=== PATIENT | female | born 1990 | race Caucasian/White ===

== ENCOUNTER 2016-08-13 17:48 | Emergency (ER) | payer OTHER ==
[~2016-08-13] VITALS: Ht 154.9 cm; Wt 53.2 kg
[~2016-08-13 17:48] MED LIST: CLON1TAB PO; HYDR-4452 PO; IBUP-2213 PO; NAPR375T2 PO; NITR100C7 PO; ONDA4TAB PO; PHEN-136 PO
[2016-08-13 18:32] VITALS: BP 116/79
--- NOTE | 2016-08-13 19:43 | NUR ---
PT TAKEN TO [facility] FROM [facility]
--- NOTE | 2016-08-13 20:05 | NUR ---
PT RETURN FROM XRAY TO LOBBY
--- NOTE | 2016-08-13 21:35 | NUR ---
PT TAKEN TO BED 4
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
--- NOTE | 2016-08-13 22:37 | NUR ---
Dr. De Guzman evaluating patient at bedside.
[2016-08-13] MEDS ORDERED: KETOROLAC 60 MG/2 ML VIAL IM ONE (22:45)
[2016-08-13 23:02] VITALS: BP 119/76
--- NOTE | 2016-08-13 23:02 | NUR ---
Patient discharged with v/s stable. Written and verbal after care instructions given and explained. Patient alert, oriented and verbalized understanding of instructions. Ambulatory with steady gait. All questions addressed prior to discharge. ID band removed. Patient advised to follow up with PMD. Rx of NORCO 5/325 AND MOTRIN 800MG given. Patient educated on indication of medication including possible reaction and side effects. Opportunity to ask questions provided and answered.
== END 2016-08-13 23:02 | disposition home or self-care (01) ==
LOC: MED 17:48
DX: M54.2 Cervicalgia (principal); R07.89 Other chest pain; M25.512 Pain in left shoulder; M25.511 Pain in right shoulder; Z88.1 Allergy status to other antibiotic agents; Z79.899 Other long term (current) drug therapy; V59.9XXA Occupant (driver) (passenger) of pick-up truck or van injured in unspecified traffic accident, initial encounter; Y93.89 Activity, other specified; Y92.89 Other specified places as the place of occurrence of the external cause; Y99.8 Other external cause status
CPT/HCPCS: 71020; 72040; 73030; 96372; 99284; J1885

== ENCOUNTER 2017-03-15 11:52 | Emergency (ER) | payer MEDICAID ==
[~2017-03-15] VITALS: Ht 152.4 cm; Wt 58.1 kg
[~2017-03-15 11:52] MED LIST changes: +ACET-787 PO; -HYDR-4452 PO; -PHEN-136 PO; +PHEN-1749 PO
[2017-03-15 12:12] VITALS: BP 105/63
--- NOTE | 2017-03-15 12:38 | NUR ---
27/F BIB SELF C/O PELVIC PAIN WITH PRESURE 10, GESTATION APPROXIMATELY 4 WEEKS. PT STATES SHE CAME HERE 2 DAYS AGO & TODAY WANT TO CHECK HCG TEST . DENIES N/V/D; SKIN IS PINK/WARM/DRY; AAOX4 WITH EVEN AND STEADY GAIT; LUNGS CLEAR BL; HR EVEN AND REGULAR; PATIENT STATES PAIN OF 7/10 AT THIS TIME; VSS; PATIENT POSITIONED FOR COMFORT; HOB ELEVATED; BEDRAILS UP X2; BED DOWN. ER MD MADE AWARE OF PT STATUS.
[2017-03-15 13:20] LABS: BASOPHILS # (AUTO) 0.1 K/uL (0.00-0.22); BASOPHILS % (AUTO) 1.6 % (0.0-2.0); EOSINOPHILS % (AUTO) 0.6 % (0.0-4.0); HEMOGLOBIN 13.9 g/dL (12.0-16.0); LYMPHOCYTES # (AUTO) 1.9 K/uL (2.5-16.5); LYMPHOCYTES % (AUTO) 27.6 % (20.5-51.1); MEAN CORPUSCULAR HEMOGLOBIN 31 pg (27-31); MEAN CORPUSCULAR HGB CONC 35 g/dL (33-37); MEAN CORPUSCULAR VOLUME 90 fL (80-94); MONOCYTES # (AUTO) 0.4 K/uL (0.8-1.0); MONOCYTES % (AUTO) 5.4 % (1.7-9.3); NEUTROPHILS # (AUTO) 4.6 K/uL (1.8-7.7); NEUTROPHILS % (AUTO) 64.8 % (42.2-75.2); PLATELET COUNT (AUTO) 271 K/uL (140-450); RED BLOOD CELL COUNT(AUTO) 4.47 MIL/uL (4.20-5.40); RED CELL DISTRIBUTION WIDTH 11.8 % (11.6-13.7)
[2017-03-15 13:47] LABS: BILIRUBIN,URINE NEGATIVE (NEGATIVE); BLOOD, URINE NEGATIVE (NEGATIVE); COLOR,URINE YELLOW (YELLOW); LEUKOCYTE ESTERASE ,URINE NEGATIVE (NEGATIVE); NITRITE, URINE NEGATIVE (NEGATIVE); UGLUCOSE NEGATIVE (NEGATIVE)
[2017-03-15 14:33] LABS: APPEARANCE,URINE CLEAR (CLEAR)
[2017-03-15 15:16] VITALS: BP 100/62
--- NOTE | 2017-03-15 15:16 | NUR ---
Patient discharged with v/s stable. Written and verbal after care instructions given and explained. Patient verbalized understanding. Ambulatory with steady gait. All questions addressed prior to discharge. Advised to follow up with PMD.
== END 2017-03-15 15:16 | disposition home or self-care (01) ==
LOC: MED 11:52
DX: O26.891 Other specified pregnancy related conditions, first trimester (principal); R10.30 Lower abdominal pain, unspecified; Z88.1 Allergy status to other antibiotic agents
CPT/HCPCS: 36415; 76817; 81003; 84702; 85025; 99285

== ENCOUNTER 2018-01-25 14:11 | Emergency (ER) | payer MEDICAID, OTHER ==
[~2018-01-25] VITALS: Ht 165.1 cm; Wt 75.7 kg
[2018-01-25 14:20] VITALS: BP 107/76
--- NOTE | 2018-01-25 15:05 | NUR ---
PT AMBULATES TO BED 3
--- NOTE | 2018-01-25 15:07 | NUR ---
Patient being evaluated by physician at bedside.
[2018-01-25] MEDS ORDERED: IBUPROFEN 800 MG TAB PO ONE (15:20)
--- NOTE | 2018-01-25 15:20 | NUR ---
27 YO F BIB SELF W/ C/O LEFT THUMB PAIN THAT RADIATES UP HER LEFT WRIST X 1 MONTH. DENIES INJURY OR TRAUMA, -DISCOLORATION, -EDEMA, -ERYTHEMA, -DEFORMITY. AAOX4, PERRL, WITH EVEN AND STEADY GAIT; LUNGS CLEAR BL, BREATHING UNLABORED; HR EVEN AND REGULAR, BL PERIPHERAL PULSES PRESENT; BS ACTIVE X4, NO TENDERNESS TO PALPATION, NO HEPATOSPLENOMEGALLY PALPATED, RESONANT TO PERCUSSION; PT DENIES ANY FEVER, CP, SOB, OR COUGH AT THIS TIME; PT STATES 8/10 PAIN AT THIS TIME; VSS; PATIENT POSITIONED FOR COMFORT; HOB ELEVATED; BEDRAILS UP X2; BED DOWN.
[2018-01-25 15:40] VITALS: BP 110/78
--- NOTE | 2018-01-25 15:40 | NUR ---
Patient discharged with v/s stable. Written and verbal after care instructions given and explained. Patient alert, oriented and verbalized understanding of instructions. Ambulatory with steady gait. All questions addressed prior to discharge. ID band removed. Patient advised to follow up with PMD. Rx of voltaren xr 100mg given. Patient educated on indication of medication including possible reaction and side effects. Opportunity to ask questions provided and answered.
== END 2018-01-25 15:39 | disposition home or self-care (01) ==
LOC: MED 14:11
DX: M79.645 Pain in left finger(s) (principal); Z88.1 Allergy status to other antibiotic agents; Z79.899 Other long term (current) drug therapy
CPT/HCPCS: 99283

== ENCOUNTER 2018-04-05 15:11 | Emergency (ER) | payer OTHER ==
[~2018-04-05] VITALS: Ht 160 cm; Wt 70.0 kg
[2018-04-05 15:23] VITALS: BP 119/57
--- NOTE | 2018-04-05 15:35 | NUR ---
28 YO F BIB SELF C/O NAUSEA & EPIGASTRIC PAIN RADIATING TO MID CHEST X 2 DAYS. DENIES ETOH. LAST MEAL WAS A BANANA AT 12PM. PT DENIES TAKING ANY MEDICATION. HX OVARIAN CYST RX DENIES DENIES V/D; SKIN IS PINK/WARM/DRY; AAOX4 WITH EVEN AND STEADY GAIT. PT DENIES ANY FEVER, SOB, OR COUGH AT THIS TIME; PATIENT STATES PAIN OF 8/10 AT THIS TIME. PATIENT POSITIONED FOR COMFORT; HOB ELEVATED; BEDRAILS UP X2; BED DOWN. ER MD MADE AWARE OF PT STATUS.
--- NOTE | 2018-04-05 15:42 | NUR ---
PT AMBULATES TO BED 7
[2018-04-05] MEDS ORDERED: LIDOCAINE VISCOUS 2% 20 ML UDC PO ONE (16:40)
[2018-04-05] MEDS ORDERED: FAMOTIDINE 20 MG TAB PO ONE (16:40)
[2018-04-05] MEDS ORDERED: ALUMINUM HYD/MAG/SIMETHICONE 30 ML UDC PO ONE (16:40)
[2018-04-05 18:35] VITALS: BP 115/75
--- NOTE | 2018-04-05 18:35 | NUR ---
Patient discharged with v/s stable. Written and verbal after care instructions given and explained. Patient alert, oriented and verbalized understanding of instructions. Ambulatory with steady gait. All questions addressed prior to discharge. ID band removed. Patient advised to follow up with PMD. Rx of OMEPRAZOLE AND ACETAMINOPHEN given. Patient educated on indication of medication including possible reaction and side effects. Opportunity to ask questions provided and answered.
== END 2018-04-05 18:35 | disposition home or self-care (01) ==
LOC: MED 15:11
DX: K21.9 Gastro-esophageal reflux disease without esophagitis (principal); Z88.1 Allergy status to other antibiotic agents; Z79.1 Long term (current) use of non-steroidal anti-inflammatories (NSAID); Z79.891 Long term (current) use of opiate analgesic; Z79.899 Other long term (current) drug therapy
CPT/HCPCS: 81025; 93005; 99284

== ENCOUNTER 2019-10-14 12:53 | Emergency (ER) | payer OTHER ==
[~2019-10-14] VITALS: Ht 152.4 cm; Wt 62.1 kg
[~2019-10-14 12:53] MED LIST changes: -ACET-787 PO; +HYDR-5191 PO
[2019-10-14 12:54] VITALS: BP 129/71
--- NOTE | 2019-10-14 13:08 | NUR ---
PT AMBULATED TO RESTROOM
--- NOTE | 2019-10-14 13:20 | NUR ---
C/ O NAUSEA,LOWER BACK PAIN X 2 WEEKS. SEEN BY [facility]RG[facility] 5 DAYS AGO & GOT MACROBID & PYRIDIUM . PT AOX4 , AFIBRILE , AMBULATORY WITH STEADY GAIT , SCE , FLAT SOFT ABDOMEN. MED HX: DENIES
[2019-10-14 13:42] LABS: APPEARANCE,URINE HAZY (CLEAR); BILIRUBIN,URINE NEGATIVE (NEGATIVE); BLOOD, URINE 3+ (NEGATIVE); COLOR,URINE YELLOW (YELLOW); LEUKOCYTE ESTERASE ,URINE NEGATIVE (NEGATIVE); NITRITE, URINE NEGATIVE (NEGATIVE); UGLUCOSE NEGATIVE (NEGATIVE)
[2019-10-14] MEDS ORDERED: KETOROLAC 30 MG/ML VIAL IVP ONE (13:55)
[2019-10-14 14:01] LABS: RBC,URINE 20-50 /HPF (0-5); WBC,URINE 0-5 /HPF (0-5)
--- NOTE | 2019-10-14 14:22 | NUR ---
PT TO CT SCAN VIA WHEELCHAIR.
--- NOTE | 2019-10-14 14:31 | NUR ---
PT BACK FROM CT SCAN VIA WHEELCHAIR.
--- NOTE | 2019-10-14 14:55 | NUR ---
DR GLOVER AT BEDSIDE REEVALUATING PT.
[2019-10-14 15:07] VITALS: BP 129/71
== END 2019-10-14 15:08 | disposition home or self-care (01) ==
LOC: MED 12:53
DX: M54.5 Low back pain (principal); K59.00 Constipation, unspecified; Z88.1 Allergy status to other antibiotic agents; Z79.899 Other long term (current) drug therapy
CPT/HCPCS: 74176; 81001; 81025; 96374; 99284; J1885; 96372

== ENCOUNTER 2019-12-18 19:09 | Emergency (ER) | payer OTHER ==
[~2019-12-18] VITALS: Ht 152.4 cm; Wt 58.1 kg
[2019-12-18 19:13] VITALS: BP 105/44
[2019-12-18 19:53] VITALS: BP 105/44
== END 2019-12-18 19:54 | disposition home or self-care (01) ==
LOC: MED 19:09
DX: H00.014 Hordeolum externum left upper eyelid (principal); H92.02 Otalgia, left ear; Z79.899 Other long term (current) drug therapy; Z88.1 Allergy status to other antibiotic agents
CPT/HCPCS: 99283

== ENCOUNTER 2020-01-05 13:45 | Emergency (ER) | payer OTHER ==
[~2020-01-05] VITALS: Ht 152.4 cm; Wt 59.0 kg
--- NOTE | 2020-01-05 13:45 | NUR ---
AMBULATED TO BED 11
[2020-01-05 13:49] VITALS: BP 102/73
--- NOTE | 2020-01-05 13:55 | NUR ---
Pt c/o left eye discomfort x 1 month, diagnosed with stye 1 month ago. Reports blurry vision on the left eye. Denies drainage or foreign body sensation. Sclera is clear cash. OS: 20/20 OD: 20/20 OU: 20/20
[2020-01-05 14:16] VITALS: BP 98/68
== END 2020-01-05 14:16 | disposition home or self-care (01) ==
LOC: MED 13:45
DX: H00.016 Hordeolum externum left eye, unspecified eyelid (principal); Z88.1 Allergy status to other antibiotic agents; Z79.899 Other long term (current) drug therapy
CPT/HCPCS: 99281

== ENCOUNTER 2020-12-02 15:56 | Emergency (ER) | payer MEDICAID, OTHER ==
[~2020-12-02] VITALS: Ht 152.4 cm; Wt 59.4 kg
[~2020-12-02 15:56] MED LIST changes: -PHEN-1749 PO; +PYR100 PO
[2020-12-02 16:07] VITALS: BP 101/59
--- NOTE | 2020-12-02 17:52 | NUR ---
30 Y/O FEMALE BIB SELF FROM HOME, C/O PELVIC AREA PAIN, FEELS FULL, THROBBING PAIN, DISTENTION AND PRESSURE. DENIES DYURIA, HEMATURIA, FEVERS, CHILLS, N/V/D. PT STATES SHE HAD A UTI ON 11/17/20, WAS TAKING ANTIBIOTICS. DENIES VAGINAL DISCHARGE OR BLEEDING. PT STATES 7/10 PAIN. PT STATES VERY TENDER. TOOK IBUPROFEN WITH NO RELIEF. PMH: OVARIAN CYSTS ALLERGY: AMOXCILLIN (RASH) MED: DENIES
--- NOTE | 2020-12-02 17:52 | NUR ---
PT AMBULATED TO BED
[2020-12-02] MEDS: IBUPROFEN 600 MG TAB PO ONE (17:55)
--- NOTE | 2020-12-02 18:04 | NUR ---
PT TAKEN TO XRAY VIA W/C
--- NOTE | 2020-12-02 18:13 | NUR ---
PT RETURNED FROM XRAY
--- NOTE | 2020-12-02 18:15 | NUR ---
PT AMBULATED TO RESTROOM
[2020-12-02] MEDS ORDERED: MAGN1.7529 PO ×2 (18:49→19:01)
[2020-12-02 19:22] VITALS: BP 101/59
--- NOTE | 2020-12-02 19:22 | NUR ---
Patient discharged with v/s stable. Written and verbal after care instructions given and explained. Patient alert, oriented and verbalized understanding of instructions. Ambulatory with steady gait. All questions addressed prior to discharge. ID band removed. Patient advised to follow up with PMD. Rx of MAGNESIUM CITRATE given. Patient educated on indication of medication including possible reaction and side effects. Opportunity to ask questions provided and answered.
== END 2020-12-02 19:22 | disposition home or self-care (01) ==
LOC: MED 15:56
DX: K59.00 Constipation, unspecified (principal); Z88.1 Allergy status to other antibiotic agents; Z79.899 Other long term (current) drug therapy
CPT/HCPCS: 74022; 81002; 81025; 99283

== ENCOUNTER 2021-02-14 19:50 | Emergency (ER) | payer OTHER ==
[~2021-02-14] VITALS: Ht 152.4 cm; Wt 63.5 kg
[~2021-02-14 19:50] MED LIST changes: +MAGN1.7529 PO
[2021-02-14 19:59] VITALS: BP 113/67
--- NOTE | 2021-02-14 20:09 | NUR ---
pt wheelchair to bed 05
[2021-02-14] MEDS ORDERED: KETOROLAC 30 MG/ML VIAL IVP ONE (20:40)
[2021-02-14] MEDS ORDERED: ONDANSETRON 4 MG/2 ML VIAL IVP ONE (20:40)
[2021-02-14] MEDS ORDERED: CYCLOBENZAPRINE 10 MG TAB PO ONE (20:40)
--- NOTE | 2021-02-14 21:28 | NUR ---
PT LEFT TO XRAY VIA AMITA
[2021-02-14] MEDS ORDERED: MORPHINE SULFATE 4 MG/ML SYR IVP ONE (21:55)
--- NOTE | 2021-02-14 22:02 | NUR ---
31 Y/O F BIB [facility] FOR SEVERE BACK PAIN. PT STATES SHE BENT DOWN TO [facility]AB DIAPER FOR HER SON AND IMMEDIATELY SHE EXPERIENCED SEVERE BACK PAIN. PT HAD A SLIP DISC ON L5S1 2.5 YEARS AGO AND WAS ADMITTED FOR 1 WEEK AT [facility]. SHE WAS GIVEN MUSCLE RELAXERS AND PT. PT STATES THE PAIN STARTS ON RT SIDE OF BACK THEN RADIATES DOWN TO HER LEG. PAIN 10/10. PT UNABLE TO AMBULATE DUE TO PAIN. A&0 X4 . PT DENIES N/F/V/SOB CHEST PAIN. HX: OVARIAN CYSTS, 2 LIVE BIRTHS, 1 NATURAL, 1 . RX: NORCO, NAPROXEN , MUSCLE RELAXERS ALLERGIES: AMOXICILLIN, TRAMADOL
--- NOTE | 2021-02-14 23:20 | NUR ---
ASSISTED PT TO BESIDE KATHLEEN
[2021-02-15] MEDS ORDERED: IBUP-2213 PO (00:10)
[2021-02-15] MEDS ORDERED: ACET-8386 PO (00:10)
[2021-02-15] MEDS ORDERED: LID5T TP (00:10)
[2021-02-15] MEDS ORDERED: CYCL-711 PO (00:25)
[2021-02-15 00:50] VITALS: BP 128/70
--- NOTE | 2021-02-15 00:50 | NUR ---
Patient discharged with v/s stable. Written and verbal after care instructions given and explained. Patient alert, oriented and verbalized understanding of instructions. Wheel Chair Assisted with to car. All questions addressed prior to discharge. ID band removed. Patient advised to follow up with PMD. Rx of HYDROCODONE/ACETAMETAPHIN, IBUPROFEN, LIDOCAINE, FLEXERIL given. Opportunity to ask questions provided and answered.
== END 2021-02-15 00:50 | disposition home or self-care (01) ==
LOC: MED 19:50
DX: M54.59 Other low back pain (principal); Z88.1 Allergy status to other antibiotic agents
CPT/HCPCS: 72110; 96374; 96375; 99284; J1885; J2270; J2405

== ENCOUNTER 2021-03-13 22:51 | Emergency (ER) | payer OTHER ==
[~2021-03-13 22:51] MED LIST changes: +ACET-8386 PO; +CYCL-711 PO; +LID5T TP
--- NOTE | 2021-03-13 23:00 | NUR ---
PATIENT CALL TO TRIAGE NO RESPONSE PATIENT LEFT WITHOUT BEING SEEN BY DR. ZAYAS. NO FURTHER CARE PROVIDED FOR PATIENT.
--- NOTE | 2021-03-13 23:20 | NUR ---
CALLED FOR THE THIRD TIME , NO RESPONSE
[2021-03-14] MEDS ORDERED: ACET-8386 PO (14:59)
[2021-03-14] MEDS ORDERED: NAPR-54 PO (14:59)
== END 2021-03-13 23:00 | disposition left against medical advice (07) ==
LOC: MED 22:51
DX: Z53.21 Procedure and treatment not carried out due to patient leaving prior to being seen by health care provider (principal)

== ENCOUNTER 2021-03-14 13:19 | Emergency (ER) | payer OTHER ==
[~2021-03-14] VITALS: Ht 152.4 cm; Wt 61.2 kg
[2021-03-14 14:02] VITALS: BP 118/72
[2021-03-14] MEDS ORDERED: NAPR-54 PO (14:59)
[2021-03-14] MEDS ORDERED: ACET-8386 PO (14:59)
[2021-03-14 15:45] VITALS: BP 118/72
--- NOTE | 2021-03-14 15:57 | NUR ---
NO COMPLETE ASSESSMENT NEEDED NO INTERVENTIONS DONE.
--- NOTE | 2021-03-14 15:58 | NUR ---
Patient discharged with v/s stable. Written and verbal after care instructions given FOR FINGER SPRAIN and explained. Patient alert, oriented and verbalized understanding of instructions. Ambulatory with steady gait. All questions addressed prior to discharge. ID band removed. Patient advised to follow up with PMD. Rx of NORCO AND NAPROXEN given. Patient educated on indication of medication including possible reaction and side effects. Opportunity to ask questions provided and answered.
== END 2021-03-14 15:58 | disposition home or self-care (01) ==
LOC: MED 13:19
DX: S63.616A Unspecified sprain of right little finger, initial encounter (principal); Z88.1 Allergy status to other antibiotic agents; Z79.899 Other long term (current) drug therapy; X58.XXXA Exposure to other specified factors, initial encounter; Y93.89 Activity, other specified; Y92.89 Other specified places as the place of occurrence of the external cause; Y99.8 Other external cause status
CPT/HCPCS: 73130; 99283

== ENCOUNTER 2021-12-06 17:32 | Emergency (ER) | payer OTHER ==
[~2021-12-06] VITALS: Ht 152.4 cm; Wt 63.5 kg
[~2021-12-06 17:32] MED LIST changes: -MAGN1.7529 PO; +MAGN296S2 PO; +NAPR-54 PO
[2021-12-06 17:39] VITALS: BP 103/70
--- NOTE | 2021-12-06 18:00 | NUR ---
BIB FAMILY C/O 12/01 MID/LOQWER BACK PAIN X 2 DAYS. DENIES DYSURIA. PMH: CHRONIC BACK PAIN
[2021-12-06] MEDS ORDERED: KETOROLAC 30 MG/ML VIAL IVP ONE (18:55)
[2021-12-06] MEDS ORDERED: MORPHINE SULFATE 4 MG/ML SYR IM ONE (18:55)
[2021-12-06] MEDS ORDERED: CYCLOBENZAPRINE 10 MG TAB PO ONE (18:55)
[2021-12-06] MEDS ORDERED: ONDANSETRON 4 MG ODT PO ONE (18:55)
--- NOTE | 2021-12-06 19:00 | NUR ---
TO ER BED 11
[2021-12-06] MEDS ORDERED: KETOROLAC 60 MG/2 ML VIAL IM ONE (19:50)
[2021-12-06] MEDS ORDERED: LIDO1ADH38 TP (19:57)
[2021-12-06] MEDS ORDERED: IBUP-2213 PO (19:57)
[2021-12-06] MEDS ORDERED: ACET-8386 PO (19:57)
--- NOTE | 2021-12-06 20:18 | NUR ---
PT TAKEN TO CT
[2021-12-06] MEDS ORDERED: CYCL-711 PO (20:22)
--- NOTE | 2021-12-06 20:30 | NUR ---
PT RETURN FROM CT
[2021-12-06] MEDS ORDERED: ACETAMINOPHEN EXTRA STRENGTH 500 MG TAB PO ONE (21:20)
[2021-12-06 21:26] VITALS: BP 103/70
--- NOTE | 2021-12-06 21:26 | NUR ---
Patient discharged with v/s stable. Written and verbal after care instructions given and explained. Patient alert, oriented and verbalized understanding of instructions. Wheel Chair Assisted with to home. All questions addressed prior to discharge. ID band removed. Patient advised to follow up with PMD. Rx of FLEXERIL IBUPROFEN LIDOCAINE given.
[2021-12-07] MEDS ORDERED: LIDOCAINE 5% 1 EA PATCH TP SCH (09:00)
== END 2021-12-06 21:26 | disposition home or self-care (01) ==
LOC: MED 17:32
DX: M54.32 Sciatica, left side (principal); M54.31 Sciatica, right side; Z88.1 Allergy status to other antibiotic agents
CPT/HCPCS: 72131; 81002; 81025; 96372; 99284; J1885; J2270; Q0162

== ENCOUNTER 2022-08-30 16:50 | Emergency (ER) | payer OTHER ==
[~2022-08-30] VITALS: Ht 152.4 cm; Wt 67.1 kg
[~2022-08-30 16:50] MED LIST changes: -ACET-8386 PO; +ACET-8905 PO; +LIDO1ADH38 TP; -MAGN296S2 PO; +MAGN296S70 PO
[2022-08-30 17:02] VITALS: BP 139/97; PULSE 81; RESP 20; TEMP 96.9; O2SAT 98
[2022-08-30 17:10] VITALS: O2SAT 98
--- NOTE | 2022-08-30 17:41 | NUR ---
LOPEZ MILES AT BEDSIDE FOR EVALUATION
[2022-08-30] MEDS ORDERED: FLUORESCEIN OPTH STRIP 1 MG OP ONE (17:45)
[2022-08-30] MEDS ORDERED: TETRACAINE HCL/PF 0.5% OPTH 4 ML BTL OP ONE (17:45)
[2022-08-30] MEDS ORDERED: TETRACAINE HCL/PF 0.5% OPTH 4 ML BTL ONE (17:49)
[2022-08-30] MEDS ORDERED: FLUORESCEIN OPTH STRIP 1 MG ONE (17:49)
[2022-08-30] MEDS ORDERED: GLYC15SO9 OP (18:14)
--- NOTE | 2022-08-30 18:30 | NUR ---
The patient's care was reviewed and supervised by GARRETT MONSALVE RN.
--- NOTE | 2022-08-30 18:30 | NUR ---
Patient discharged with v/s stable. Written and verbal after care instructions FOR CHEMICAL CONJUCTIVITIS given and explained. Patient alert, oriented and verbalized understanding of instructions. Ambulatory with steady gait. All questions addressed prior to discharge. ID band removed. Patient advised to follow up with PMD. Rx of VISINE TIRED EYE RELIEF given. Opportunity to ask questions provided and answered.
== END 2022-08-30 18:30 | disposition home or self-care (01) ==
LOC: MED 16:50
DX: H10.212 Acute toxic conjunctivitis, left eye (principal); R03.0 Elevated blood-pressure reading, without diagnosis of hypertension; Z88.1 Allergy status to other antibiotic agents; Z79.899 Other long term (current) drug therapy
CPT/HCPCS: 99283

== ENCOUNTER 2023-05-06 19:03 | Emergency (ER) | payer OTHER ==
[~2023-05-06] VITALS: Ht 152.4 cm; Wt 67.6 kg
[~2023-05-06 19:03] MED LIST changes: +GLYC15SO9 OP
[2023-05-06 19:08] VITALS: BP 105/75; PULSE 78; RESP 18; TEMP 98.1; O2SAT 100
[2023-05-06 20:03] LABS: BASOPHILS % (AUTO) 0.3 % (0.0-2.0); EOSINOPHILS % (AUTO) 0.6 % (0.0-4.0); HEMATOCRIT 38.6 % (36-48); HEMOGLOBIN 13.3 g/dL (12.0-16.0); LYMPHOCYTES # (AUTO) 1.7 K/uL (2.5-16.5); LYMPHOCYTES % (AUTO) 31.9 % (20.5-51.1); MEAN CORPUSCULAR HEMOGLOBIN 31 pg (27-31); MEAN CORPUSCULAR HGB CONC 34 g/dL (33-37); MONOCYTES # (AUTO) 0.3 K/uL (0.8-1.0); MONOCYTES % (AUTO) 5.5 % (1.7-9.3); NEUTROPHILS # (AUTO) 3.3 K/uL (1.8-7.7); NEUTROPHILS % (AUTO) 61.7 % (42.2-75.2); PLATELET COUNT (AUTO) 243 K/uL (140-450); RED BLOOD CELL COUNT(AUTO) 4.34 MIL/uL (4.20-5.40); WHITE BLOOD COUNT (AUTO) 5.4 K/uL (4.8-10.8)
[2023-05-06 20:20] LABS: ANION GAP 11.3 (8-16); CALCIUM 8.9 mg/dL (8.5-10.1); CARBON DIOXIDE 28.4 mmol/L (21-32); CREATININE 0.7 mg/dL (0.6-1.3); POTASSIUM 3.7 mmol/L (3.5-5.1)
[2023-05-06 20:29] LABS: ALANINE AMINOTRANSFERASE 18 U/L (12-78); ALBUMIN 3.7 g/dL (3.4-5.0); ALKALINE PHOSPHATASE 72 U/L (50-136); ASPARTATE AMINOTRANSFERASE 18 U/L (15-37); BILIRUBIN,DIRECT 0.2 mg/dL (0.0-0.3); TOTAL BILIRUBIN 0.7 mg/dL (0.0-1.0); TOTAL PROTEIN, SERUM 8.3 g/dL (6.4-8.2)
[2023-05-06 21:18] LABS: APPEARANCE,URINE CLEAR (CLEAR); BILIRUBIN,URINE NEGATIVE (NEGATIVE); BLOOD, URINE TRACE-I (NEGATIVE); COLOR,URINE YELLOW (YELLOW); LEUKOCYTE ESTERASE ,URINE NEGATIVE (NEGATIVE); NITRITE, URINE NEGATIVE (NEGATIVE); PROTEIN,URINE NEGATIVE (NEGATIVE); UGLUCOSE NEGATIVE (NEGATIVE); UROBILINOGEN,URINE 0.2 EU/dL (0.2 - 1)
[2023-05-06 21:42] VITALS: BP 110/75; PULSE 85; RESP 18; TEMP 98.1; O2SAT 100
== END 2023-05-06 21:42 | disposition home or self-care (01) ==
LOC: MED 19:03
DX: R55 Syncope and collapse (principal); R42 Dizziness and giddiness; R11.0 Nausea; F41.9 Anxiety disorder, unspecified; Z79.899 Other long term (current) drug therapy; Z88.0 Allergy status to penicillin
CPT/HCPCS: 36415; 70450; 71045; 80048; 80076; 81003; 81025; 84484; 85025; 93005; 99285

== ENCOUNTER 2023-06-26 22:25 | Emergency (ER) | payer OTHER ==
[~2023-06-26] VITALS: Ht 152.4 cm; Wt 67.1 kg
[~2023-06-26 22:25] MED LIST changes: +CLON-1202 PO; -CLON1TAB PO; +HYDR-5071 PO; -HYDR-5191 PO; +NAPR-337 PO; -NAPR-54 PO
[2023-06-26 22:28] VITALS: BP 100/60; PULSE 94; RESP 18; TEMP 98.1; O2SAT 97
[2023-06-26 23:04] LABS: BASOPHILS % (AUTO) 0.4 % (0.0-2.0); EOSINOPHILS % (AUTO) 0.5 % (0.0-4.0); HEMATOCRIT 41.8 % (36-48); HEMOGLOBIN 13.8 g/dL (12.0-16.0); LYMPHOCYTES # (AUTO) 2.1 K/uL (2.5-16.5); LYMPHOCYTES % (AUTO) 32.6 % (20.5-51.1); MEAN CORPUSCULAR HEMOGLOBIN 30 pg (27-31); MEAN CORPUSCULAR HGB CONC 33 g/dL (33-37); MEAN CORPUSCULAR VOLUME 90.5 fL (80-94); MONOCYTES # (AUTO) 0.3 K/uL (0.8-1.0); NEUTROPHILS % (AUTO) 61.5 % (42.2-75.2); PLATELET COUNT (AUTO) 249 K/uL (140-450); RED BLOOD CELL COUNT(AUTO) 4.62 MIL/uL (4.20-5.40); RED CELL DISTRIBUTION WIDTH 12.9 % (11.6-13.7); WHITE BLOOD COUNT (AUTO) 6.5 K/uL (4.8-10.8)
[2023-06-26 23:39] LABS: ANION GAP 16.9 (8-16); CALCIUM 9.1 mg/dL (8.5-10.1); CARBON DIOXIDE 22.6 mmol/L (21-32); CREATININE 0.7 mg/dL (0.6-1.3); POTASSIUM 3.5 mmol/L (3.5-5.1)
[2023-06-26 23:46] LABS: ALBUMIN 3.9 g/dL (3.4-5.0); BILIRUBIN,DIRECT 0.1 mg/dL (0.0-0.3); TOTAL BILIRUBIN 0.6 mg/dL (0.0-1.0); TOTAL PROTEIN, SERUM 7.3 g/dL (6.4-8.2)
[2023-06-27 00:11] VITALS: TEMP 98.1
[2023-06-27] MEDS ORDERED: ONDANSETRON 4 MG ODT PO ONE (00:25)
[2023-06-27] MEDS: KETOROLAC 30 MG/ML VIAL IVP ONE (00:53)
[2023-06-27] MEDS: ONDANSETRON 4 MG/2 ML VIAL IVP ONE (00:55)
[2023-06-27 00:56] LABS: APPEARANCE,URINE CLEAR (CLEAR); BILIRUBIN,URINE NEGATIVE (NEGATIVE); BLOOD, URINE 2+ (NEGATIVE); COLOR,URINE YELLOW (YELLOW); LEUKOCYTE ESTERASE ,URINE NEGATIVE (NEGATIVE); NITRITE, URINE NEGATIVE (NEGATIVE); PROTEIN,URINE NEGATIVE (NEGATIVE); UGLUCOSE NEGATIVE (NEGATIVE); UROBILINOGEN,URINE 0.2 EU/dL (0.2 - 1)
[2023-06-27 01:30] LABS: BACTERIA,URINE 1+ /HPF (None Seen); RBC,URINE 0-5 /HPF (0-5); WBC,URINE 0-5 /HPF (0-5)
[2023-06-27 01:31] LABS: MUCUS,URINE 2+ /LPF (None Seen); SQUAMOUS EPITHELIAL CELL,UR 4-10 (MOD) /LPF (0-3 (FEW))
[2023-06-27] MEDS: MORPHINE SULFATE 4 MG/ML SYR IVP ONE (01:32)
[2023-06-27] MEDS: ACETAMINOPHEN 100 ML IV ONE (03:20)
[2023-06-27] MEDS ORDERED: ACET-8905 PO (03:38)
[2023-06-27] MEDS ORDERED: SENN1TAB40 PO (03:38)
[2023-06-27] MEDS ORDERED: NAPR-1559 PO (03:38)
[2023-06-27] MEDS ORDERED: MIRABULK PO (03:38)
[2023-06-27 03:42] VITALS: BP 108/61; PULSE 60; RESP 14; O2SAT 99
== END 2023-06-27 03:52 | disposition home or self-care (01) ==
LOC: MED 22:25
DX: R10.2 Pelvic and perineal pain (principal); N94.6 Dysmenorrhea, unspecified; K59.00 Constipation, unspecified; Z79.1 Long term (current) use of non-steroidal anti-inflammatories (NSAID); Z79.899 Other long term (current) drug therapy; Z88.1 Allergy status to other antibiotic agents
CPT/HCPCS: 36415; 74177; 76856; 80048; 80076; 81001; 81025; 83690; 85025; 93976; 96374; 96375; 99285; J1885; J2270; J2405; Q0092; Q9967; 96365